=== PATIENT | male | born 1965 | race Caucasian/White ===

== ENCOUNTER 2023-10-02 06:11 | Observation (INO) | payer BC ==
[2023-10-02] MEDS ORDERED: Lactated Ringers 1,000 ML IV ONE (06:12)
[2023-10-02] MEDS ORDERED: Pepcid 20 MG VIAL IV ONE (06:12)
[2023-10-02] MEDS ORDERED: Reglan 10 MG/2 ML IV ONE (06:12)
[2023-10-02] MEDS ORDERED: Versed 2 MG/2 ML Injection IV ONE (06:12)
[2023-10-02] MEDS ORDERED: DIPRIVAN 200 MG/20 ML IV ONE (06:12)
[2023-10-02] MEDS ORDERED: Xylocaine-Mpf 2% 5 Ml Vial IJ ONE (06:12)
[2023-10-02] MEDS ORDERED: DEXMEDETOMIDINE 80 MCG/20ML-NS IV ONE (06:12)
[2023-10-02] MEDS ORDERED: Xylocaine 1% Vial 30 ML PF IJ ONE (06:12)
[2023-10-02] MEDS ORDERED: Marcaine Mpf 0.5% Vial 30 Ml IJ ONE (06:12)
[2023-10-02] MEDS: Pepcid 20 MG VIAL IV ONE (06:37)
[2023-10-02] MEDS: Lactated Ringers 1,000 ML IV SCH (06:37)
[2023-10-02] MEDS: Reglan 10 MG/2 ML IV ONE (06:37)
[2023-10-02] MEDS: Maxipime 2 GM IV SCH (07:41)
--- NOTE | 2023-10-02 09:21 | XRAY ---
Indication: Right foot incision and drainage. 1st metatarsal sesamoidectomy and bone biopsy. Intraoperative fluoroscopy provided for 6 seconds. 2 digital spot images submitted for interpretation demonstrates instrumentation 1st MTP. Correlate with intraoperative findings/report.
[2023-10-02] MEDS ORDERED: Maxipime 2 GM** 2 G in Sodium Chloride 100ML MINI-BAG PLUS 100 ML IV SCH (09:30)
[2023-10-02] MEDS ORDERED: Zofran 4 MG/2 ML VIAL IV PRN (10:27)
[2023-10-02] MEDS ORDERED: MORPHINE SULFATE 2 MG INJ IV PRN (10:28)
[2023-10-02] MEDS ORDERED: TYLENOL 325 MG PO PRN (10:29)
[2023-10-02] MEDS ORDERED: Docusate Sodium 100 MG PO PRN (10:29)
--- NOTE | 2023-10-02 10:43 | PCM.HP ---
History of Present Illness - Chief Complaint Chief Complaint: right foot wound Date: 10/02/23 History of Present Illness: Mr.THOMPSON GUAMAN is a 58 year old male with pmhx of HTN, Pacemaker, hyperlipidemia, gout, type II DM, and obesity. He was admitted post op surgery with podiatry today for I&D with bone graft of right foot. His right foot is wrapped and elevated on a pillow. He reports no pain at this time. Pt admitted by hospitalist team for medical management. Awaiting podiatry recs. Pt denies any further concerns at this time. - Review of Systems Constitutional: No Fever, No Chills Eyes: No Symptoms Ears, Nose, & Throat: No Symptoms Respiratory: No Cough, No Short Of Breath Cardiac: No Chest Pain, No Edema, No Syncope Abdominal/Gastrointestinal: No Abdominal Pain, No Nausea, No Vomiting, No Diarrhea Genitourinary Symptoms: No Dysuria Musculoskeletal: No Back Pain, No Neck Pain Skin: Decubiti (right foot wound, wrapped by podiatry), No Rash Neurological: No Dizziness, No Focal Weakness, No Sensory Changes Psychological: No Symptoms Endocrine: No Symptoms Hematologic/Lymphatic: No Symptoms Immunological/Allergic: No Symptoms Medications & Allergies Home Medications: Home Medication List Allopurinol 300 mg [Zyloprim 300 mg] 300 mg PO DAILY 12/16/14 [History Confirmed 10/02/23] Aspirin EC 325 mg [Ecotrin 325 MG] 81 mg PO DAILY 12/16/14 [History Confirmed 10/02/23] Carvedilol [Coreg 6.25 MG] 6.25 mg PO BID 12/16/14 [History Confirmed 10/02/23] Furosemide [Lasix] 40 mg PO DAILY 12/16/14 [History Confirmed 10/02/23] Potassium Chloride 20 Meq [Klor-Con 20 MEQ] 20 meq PO DAILY 12/16/14 [History Confirmed 10/02/23] Simvastatin 20 mg PO HS 12/16/14 [History Confirmed 10/02/23] lisinopriL [Lisinopril] 20 mg PO DAILY 12/16/14 [History Confirmed 10/02/23] Metformin HCl 500 mg [Glucophage 500 MG] 500 mg PO BIDWM 09/26/23 [History Confirmed 10/02/23] Cefepime HCl 2 gm [Maxipime 2 GM] 2 gm IJ BID 10/02/23 [History Confirmed 10/02/23] Allergies/Adverse Reactions: Allergies Allergy/AdvReac Type Severity Reaction Status Date / Time No Known Drug Allergies Allergy Verified 10/02/23 06:21 - Past Medical History Past Medical History: Yes Neurological History: Peripheral Neuropathy ENT History: No Pertinent History Cardiac History: Hypertension Respiratory History: No Pertinent History Endocrine Medical History: No Pertinent History Musculoskelatal History: No Pertinent History GI Medical History: No Pertinent History History: Other Pyscho-Social History: No Pertinent History Male Reproductive Disorders: No Pertinent History Comment: Pt had heart infection D/T pacemaker 2014. - Past Surgical History Past Surgical History: Yes Neuro Surgical History: No Pertinent History Cardiac History: Internal Defibrillator, Pacemaker GI Surgical History: No Pertinent History Genitourinary Surgical Hx: No Pertinent History Musculskeletal Surgical Hx: Joint Replacement Male Surgical History: No Pertinent History - Social History Smoking Status: Never smoker Exposure to second hand smoke: No Alcohol: None Drug Use: none - Physical Exam Vital Signs: Vital Signs - 24 hr Temp Pulse Resp BP Pulse Ox 10/02/23 06:44 97.4 F 69 18 122/65 96 10/02/23 06:27 97.4 F 69 18 122/65 96 General Appearance: no apparent distress, alert Neurologic Exam: alert, oriented x 3, cooperative, normal mood/affect, nml cerebellar function, nml station & gait, sensation nml, No motor deficits Eye Exam: PERRL/EOMI, eyes nml inspection Ears, Nose, Throat Exam: normal ENT inspection, TMs normal, pharynx normal, moist mucous membranes Neck Exam: normal inspection, non-tender, supple, full range of motion Respiratory Exam: normal breath sounds, lungs clear, No respiratory distress Cardiovascular Exam: regular rate/rhythm, normal heart sounds, normal peripheral pulses Gastrointestinal/Abdomen Exam: soft, normal bowel sounds, No tenderness, No mass Back Exam: normal inspection, normal range of motion, No CVA tenderness, No vertebral tenderness Extremity Exam: normal inspection, normal range of motion, pelvis stable, other (right foot wound, wrapped by podiatry- post op I&D) Skin Exam: normal color, warm, dry, No rash Lymphatic Exam: No adenopathy Results - Labs Lab/Micro Results: Lab Results-Last 24 Hours 10/02/23 Range/Units 09:25 POC Glucometer 147 H (74 to 106) mg/dL Microbiology 10/02/23 08:41 Aerobic Culture Result 1 - Final Foot - Right Not Reportable Aerobic Culture Result 2 - Final Not Reportable Aerobic Culture Result 3 - Final Not Reportable Aerobic Culture Result 4 - Final Not Reportable Aerobic Bacterial Sensitivity - Final Not Reportable Acid Fast Bacilli (AFB) Probe - Final Not Reportable M.tuberculosis Complex DNA Probe - Final Not Reportable Mycobact. avium Complex DNA Probe - Final Not Reportable Mycobacterium kansasii DNA Probe - Final Not Reportable Mycobacterium gordanae DNA Probe - Final Not Reportable Mycobacterium DNA Probe - Final Not Reportable Organism ID (Sequencing) - Final Not Reportable Organism ID (Sequencing 2)(SANTI) - Final Not Reportable AFB Susceptibility Testing - Final Not Reportable - Radiology Impressions Radiology Exams & Impressions: Radiology Procedures Category Date Time Status FLUOROSCOPY UP TO 1 HR Routine Exams 10/02/23 05:13 Taken FOOT (MINIMUM 3 VIEWS) Routine Exams 10/02/23 05:13 Completed Assessment/Plan (1) Wound, open, foot Current Visit: No Status: Acute Assessment & Plan: - Podiatry consult, awaiting recs - Post op I& D right foot wound with bone graft - cefepime IV - 2:2 type II DM - Narcotic pain control - zofran PRN N/V Code(s): S91.309A - UNSPECIFIED OPEN WOUND, UNSPECIFIED FOOT, INITIAL ENCOUNTER (2) Type II diabetes mellitus Current Visit: Yes Status: Chronic Assessment & Plan: - Uncontrolled - A1C 09/12/23 7.78 - accuchecks ac/hs - low dose s/s Humalog - 1800 morelia consistent carb diet - hold metformin (3) Hyperlipidemia Current Visit: Yes Status: Chronic Assessment & Plan: - continue statin Code(s): E78.5 - HYPERLIPIDEMIA, UNSPECIFIED (4) HTN (hypertension) Current Visit: Yes Status: Chronic Assessment & Plan: - stable - continue home meds Code(s): I10 - ESSENTIAL (PRIMARY) HYPERTENSION (5) Obesity, morbid, BMI 40.0-49.9 Current Visit: Yes Status: Acute Assessment & Plan: - advised ADA diet and exercise control VTE: SCD Next of kin: Peter Wilkins [phone] D/c plan: per podiatry recs Code status: Full Code(s): E66.01 - MORBID (SEVERE) OBESITY DUE TO EXCESS CALORIES
[2023-10-02] MEDS ORDERED: HUMALOG SQ PRN (10:49)
[2023-10-02] MEDS ORDERED: NORCO 7.5/325 MG TAB PO PRN (10:51)
--- NOTE | 2023-10-02 11:56 | XRAY ---
5.7 seconds of fluoroscopy was used in surgery for a right foot incision and drainage. 1st metatarsal sesamoidectomy and bone biopsy.
[2023-10-02] MEDS: ECOTRIN 81 MG PO SCH (12:45)
[2023-10-02] MEDS: Lasix 40 MG PO SCH (12:45)
[2023-10-02] MEDS: Klor Con PO SCH (12:46)
[2023-10-02] MEDS: ZYLOPRIM 300 MG PO SCH (12:46)
[2023-10-02] MEDS: Zestril 20 MG PO SCH (12:46)
[2023-10-02] MEDS: PIPERACILLIN/TAZOBACTAM 4.5 GM in Sodium Chloride 100ML MINI-BAG PLUS 100 ML IV SCH (18:20)
[2023-10-02] MEDS: ZOCOR 20MG PO SCH (21:28)
[2023-10-02] MEDS: Coreg PO SCH (21:28)
[2023-10-03] MEDS: NORCO 5/325 MG PO PRN (03:03)
[2023-10-03 04:52] LABS: Hematocrit 41.5 % (42-50); Hemoglobin 12.9 g/dL (12.5-18.0); Mean Cell Volume 89.8 fL (78-100); Mean Corpuscular Hemoglobin 27.9 pg (26-32); Mean Corpuscular Hgb Concent. 31.1 g/dL (32-36); Mean Platelet Volume 10.2 fL (7.5-11.0); Platelet Count 204 x10^3/uL (150-450); Red Blood Count 4.62 x10^6/uL (4.1-5.6); Red Cell Distribution Width 15.9 % (11.5-14.0); White Blood Count 9.2 x10^3/uL (4.0-10.5)
[2023-10-03 05:10] LABS: ANION GAP 10.1 MEQ/L (5-15); Calcium 8.4 mg/dL (8.4-10.2); Creatinine 1 0.88 mg/dL (0.66-1.25); EST GLOMERULAR FILTRATION RATE 98.4 ML/MIN; Potassium 4.4 mmol/L (3.5-5.1)
--- NOTE | 2023-10-03 08:48 | PCM.NOTE ---
Date and Time: 10/03/23 0839 Subjective Assessment: 10/02/23 Mr.THOMPSON GUAMAN is a 58 year old male with pmhx of HTN, Pacemaker, hyperlipidemia, gout, type II DM, and obesity. He was admitted post op surgery with podiatry today for I&D with bone graft of right foot. His right foot is wrapped and elevated on a pillow. He reports no pain at this time. Pt admitted by hospitalist team for medical management. Awaiting podiatry recs. Pt denies any further concerns at this time. 10/03/23 Pt resting in the chair. He reports no pain his morning. Podiatry discussed case with Dr. Keys yesterday. Pt has a hx of culture with pseudomonas twice. Started on IV Zosyn yesterday. He was seen in OR yesterday by podiatry and reported to have an abscess and osteomyelitis per podiatry. I have no radiology results to confirm this. He is otherwise doing well at this time. Plan is IP stay for 2-3 days per podiatry. He denies any further concerns at this time. - Review of Systems Constitutional: No Fever, No Chills Eyes: No Symptoms Ears, Nose, & Throat: No Symptoms Respiratory: No Cough, No Short Of Breath Cardiac: No Chest Pain, No Edema, No Syncope Abdominal/Gastrointestinal: No Abdominal Pain, No Nausea, No Vomiting, No Diarrhea Genitourinary Symptoms: No Dysuria Musculoskeletal: No Back Pain, No Neck Pain Skin: Skin Lesions (right foot wound, wrapped by podiatry), No Rash Neurological: No Dizziness, No Focal Weakness, No Sensory Changes Psychological: No Symptoms Endocrine: No Symptoms Hematologic/Lymphatic: No Symptoms Immunological/Allergic: No Symptoms Objective Exam General Appearance: no apparent distress, alert Neurologic Exam: alert, oriented x 3, cooperative, normal mood/affect, nml cerebellar function, sensation nml, No motor deficits Skin Exam: normal color, warm, dry Wound Assessment: Skin/Wound Assessment Wound/Incision Assessment Start: 10/02/23 11:22 Text: Status: Active Freq: Q6H Protocol: Document 10/03/23 08:00 THEODORE (Rec: 10/03/23 08:10 THOEDORE [id number]) Wound/Incision Assessment Right Foot Wound Assessment Shift Assessment Wound Type Incision Wound Stage Non Pressure Wound Dressing Status Dry & Intact Comment DR MERCADO DRESSING INTACT Eye Exam: PERRL, EOMI, eyes nml inspection Ears, Nose, Throat Exam: normal ENT inspection, pharynx normal, moist mucous membranes Neck Exam: normal inspection, non-tender, supple, full range of motion Respiratory Exam: normal breath sounds, lungs clear, No respiratory distress Cardiovascular Exam: regular rate/rhythm, normal heart sounds Gastrointestinal/Abdomen Exam: soft, No tenderness, No mass Extremity Exam: normal inspection, normal range of motion, other (right foot wound, wrapped by podiatry- post op I&D) Back Exam: normal inspection, normal range of motion, No CVA tenderness, No vertebral tenderness Male Genitalia Exam: deferred Rectal Exam: deferred Objective Data Vital Signs: Vital Signs - 24 hr Temp Pulse Resp BP Pulse Ox 10/03/23 07:56 65 97/52 10/03/23 07:20 97.5 F 68 18 89/50 99 10/03/23 04:00 97.0 F 68 18 102/52 96 10/02/23 23:38 97.7 F 78 16 106/58 99 10/02/23 19:34 97.6 F 74 20 112/53 97 10/02/23 13:05 97.4 F 66 17 136/81 96 10/02/23 12:05 97.4 F 63 16 108/55 96 10/02/23 12:00 97.5 F 66 17 136/81 96 10/02/23 11:35 97.4 F 63 17 110/60 96 10/02/23 11:05 97.3 F 62 17 113/60 96 10/02/23 10:50 97.1 F 62 17 113/60 98 Pain Assessment - Last Documented Pain Intensity 0 Pain Scale Used 0-10 Pain Scale Intake and Output: Intake & Output 09/30/23 10/01/23 10/02/23 10/03/23 11:59 11:59 11:59 11:59 Intake Total 1858 Output Total 1950 Balance -92 Weight 143.2 kg Lab Results: Lab Results-Last 24 Hours 10/02/23 10/02/23 10/02/23 Range/Units 09:25 12:28 16:42 WBC (4.0-10.5) x10^3/uL RBC (4.1-5.6) x10^6/uL Hgb (12.5-18.0) g/dL Hct (42-50) % MCV (78-100) fL MCH (26-32) pg MCHC (32-36) g/dL RDW (11.5-14.0) % Plt Count (150-450) x10^3/uL MPV (7.5-11.0) fL Sodium (135-145) mmol/L Potassium (3.5-5.1) mmol/L Chloride (98-107) mmol/L Carbon Dioxide (22-30) mmol/L Anion Gap (5-15) MEQ/L BUN (9-20) mg/dL Creatinine (0.66-1.25) mg/dL Estimated GFR ML/MIN Glucose (74-106) mg/dL POC Glucometer 147 H 199 H 174 H (74 to 106) mg/dL Calcium (8.4-10.2) mg/dL 10/02/23 10/03/23 10/03/23 Range/Units 21:23 04:42 04:42 WBC 9.2 (4.0-10.5) x10^3/uL RBC 4.62 (4.1-5.6) x10^6/uL Hgb 12.9 (12.5-18.0) g/dL Hct 41.5 L (42-50) % MCV 89.8 (78-100) fL MCH 27.9 (26-32) pg MCHC 31.1 L (32-36) g/dL RDW 15.9 H (11.5-14.0) % Plt Count 204 (150-450) x10^3/uL MPV 10.2 (7.5-11.0) fL Sodium 137 (135-145) mmol/L Potassium 4.4 (3.5-5.1) mmol/L Chloride 103 (98-107) mmol/L Carbon Dioxide 28 (22-30) mmol/L Anion Gap 10.1 (5-15) MEQ/L BUN 22 H (9-20) mg/dL Creatinine 0.88 (0.66-1.25) mg/dL Estimated GFR 98.4 ML/MIN Glucose 130 H (74-106) mg/dL POC Glucometer 171 H (74 to 106) mg/dL Calcium 8.4 (8.4-10.2) mg/dL 03/13/24 Range/Units 07:17 WBC (4.0-10.5) x10^3/uL RBC (4.1-5.6) x10^6/uL Hgb (12.5-18.0) g/dL Hct (42-50) % MCV (78-100) fL MCH (26-32) pg MCHC (32-36) g/dL RDW (11.5-14.0) % Plt Count (150-450) x10^3/uL MPV (7.5-11.0) fL Sodium (135-145) mmol/L Potassium (3.5-5.1) mmol/L Chloride (98-107) mmol/L Carbon Dioxide (22-30) mmol/L Anion Gap (5-15) MEQ/L BUN (9-20) mg/dL Creatinine (0.66-1.25) mg/dL Estimated GFR ML/MIN Glucose (74-106) mg/dL POC Glucometer 125 H (74 to 106) mg/dL Calcium (8.4-10.2) mg/dL Radiology Exams: Radiology Procedures Category Date Time Status FLUOROSCOPY UP TO 1 HR Routine Exams 10/02/23 05:13 Completed FOOT (MINIMUM 3 VIEWS) Routine Exams 10/02/23 05:13 Completed Assessment/Plan (1) Wound, open, foot Current Visit: No Status: Acute Code(s): S91.309A - UNSPECIFIED OPEN WOUND, UNSPECIFIED FOOT, INITIAL ENCOUNTER (2) Type II diabetes mellitus Current Visit: Yes Status: Chronic (3) Hyperlipidemia Current Visit: Yes Status: Chronic Code(s): E78.5 - HYPERLIPIDEMIA, UNSPECIFIED (4) HTN (hypertension) Current Visit: Yes Status: Chronic Code(s): I10 - ESSENTIAL (PRIMARY) HYPERTENSION (5) Obesity, morbid, BMI 40.0-49.9 Current Visit: Yes Status: Acute Assessment & Plan: (1) Wound, open, foot Current Visit: No Status: Acute Assessment & Plan: - Podiatry consult, awaiting recs - Post op I& D right foot wound with bone graft - was on Cefepime OP - IV Zosyn - 2:2 type II DM - Narcotic pain control - Zofran PRN N/V Code(s): S91.309A - UNSPECIFIED OPEN WOUND, UNSPECIFIED FOOT, INITIAL ENCOUNTER (2) Type II diabetes mellitus Current Visit: Yes Status: Chronic Assessment & Plan: - Uncontrolled - A1C 09/12/23 7.78 - accuchecks ac/hs - low dose s/s Humalog - 1800 morelia consistent carb diet - hold metformin (3) Hyperlipidemia Current Visit: Yes Status: Chronic Assessment & Plan: - continue statin Code(s): E78.5 - HYPERLIPIDEMIA, UNSPECIFIED (4) HTN (hypertension) Current Visit: Yes Status: Chronic Assessment & Plan: - stable - continue home meds Code(s): I10 - ESSENTIAL (PRIMARY) HYPERTENSION (5) Obesity, morbid, BMI 40.0-49.9 Current Visit: Yes Status: Acute Assessment & Plan: - advised ADA diet and exercise control Code(s): E66.01 - MORBID (SEVERE) OBESITY DUE TO EXCESS CALORIES (6) History of MDR Pseudomonas aeruginosa infection Current Visit: Yes Status: Acute Assessment & Plan: - seen after reviewing old labs - No need for isolation unless doing dressing changes per infection control. VTE: SCD Next of kin: Peter Franky [phone] D/c plan: 2-3 days Code status: Full Code(s): Z86.19 - PERSONAL HISTORY OF OTHER INFECTIOUS AND PARASITIC DISEASES
--- NOTE | 2023-10-03 09:13 | OP ---
SURGERY DATE/TIME: 10/02/2023 0757 PREOPERATIVE DIAGNOSES: 1) Right foot pain. 2) Diabetic foot ulceration. 3) Diabetic peripheral neuropathy. 4) Osteomyelitis of fibular sesamoid. 5) Abscess right foot. POSTOPERATIVE DIAGNOSES: 1) Right foot pain. 2) Diabetic foot ulceration. 3) Diabetic peripheral neuropathy. 4) Osteomyelitis of fibular sesamoid. 5) Abscess right foot. PROCEDURE: Incision and drainage with bone debridement and bone biopsy to the right foot with open packing. SURGEON: Mariusz Yen DPM. WEB PRESS JOGGER: None. ANESTHESIA: Monitored anesthesia care with intraoperative block at the level of the ankle consisting of 30 cc of a 1:1 mixture of 1% lidocaine plain and 0.5% bupivacaine plain. HEMOSTASIS: Pressure dressing. ESTIMATED BLOOD LOSS: Approximately 20 cc. MATERIALS: 3-0 Nylon, 0.25 inch Iodoform packing, 1,000 ml of Bactisure. INJECTABLES: 30 cc of a 1:1 mixture of 1% lidocaine plain and 0.5% bupivacaine plain injected in an ankle block-type fashion to the right ankle. INDICATION FOR SURGERY: Carlos is a very pleasant 58-year-old male who is well-known to our service for a diabetic foot ulcer to the right foot that had started several months ago. As a matter of fact, the patient has had this wound open in the past which resolved with time approximately five years ago. At this time, the wound does have a positive probe to bone with concern for infection. The patient was sent for an MRI, which did demonstrate probability of osteomyelitis in a minimum fibular sesamoid. At this time, we have decided to proceed based on the fact that the MRI did demonstrate an abscess between the first and second metatarsus plantarly to proceed with incision and drainage as well as perform bone debridement with removal of the fibular sesamoid as well as bone biopsies to be taken of the first metatarsal and proximal phalanx of the hallux. The patient understands all risks, complications and benefits of surgical intervention at this time including but not limited to infection, hematoma, seroma, possibility of delayed wound healing, nonwound healing and possible failure of surgical intervention leading to amputation. The patient has been made aware that his infection is not currently limb threatening or life threatening. However, this can still progress despite our work. We will do everything to avoid this outcome. The patient understands all of this. Plenty of time was allowed for the patient to ask question which were answered to his apparent satisfaction. It is at this we have decided to proceed. DESCRIPTION OF PROCEDURE AND FINDINGS: The patient is brought into the OR and placed on the OR table in the supine position. At this time, monitored anesthesia care was administered until the patient was adequately sedated. The right foot was prepped and draped in typical sterile fashion and lowered onto the surgical field. At this time, attention was directed to the plantar aspect of the right foot where there was a positive probe to bone which tunneled into metatarsal space and dorsally this did demonstrate some purulence and this was expressed. Dorsal incision was made through the intermetatarsal area connecting the plantar and dorsal foot wound. At this time, attention was directed to the plantar aspect where the wound was excised and on inspection the fibular sesamoid was identified and removed from its footprint. Bone quality was assessed and bone biopsies were taken utilizing a rongeur at the first metatarsal head plantarly as well as the base of the proximal phalanx plantarly this was sent for pathologic assessment. Cultures were obtained in the abscess this was then flushed with 1,000 ml of Bactisure. Following this, 3 liters of sterile saline were utilized to flush the surgical site. 0.25 inch Iodoform packing dipped in Iodine was then packed into the site. Following this, the wounds at the medial aspect of the first metaphalangeal joint as well as the lateral leg wounds from venous insufficiency were debrided. Following this the wounds were cleansed and a dressing consisting of 0.25 inch Iodoform packing, Iodine, Adaptic, 4x4, Kerlix, ABD, Ysabel and Coban was applied to the right lower extremity. The patient was then reversed from anesthesia and returned to the postoperative anesthesia care unit with vital signs stable and vascular status intact. The patient handled the anesthesia as well as the procedure without significant complication. Postoperative orders as indicated in the patient's inpatient chart.
[2023-10-03] MEDS ORDERED: Ecotrin 325 MG PO SCH (10:00)
[2023-10-03] MEDS: VITAMIN D PO SCH (10:00)
[2023-10-03] MEDS ORDERED: NON-FORMULARY ITEM (Potassium Chloride 20 Meq [Klor-Con 20 Meq] 20 MEQ Tab) PO SCH (10:00)
[2023-10-03] MEDS: Maxipime 2 GM** 2 G in Sodium Chloride 0.9% 100 ML IV SCH (17:32)
[2023-10-03] MEDS ORDERED: MAXIPIME 1 GM IV SCH (18:00)
[2023-10-04 04:46] LABS: Hematocrit 42.2 % (42-50); Hemoglobin 12.9 g/dL (12.5-18.0); Mean Cell Volume 90.2 fL (78-100); Mean Corpuscular Hemoglobin 27.6 pg (26-32); Mean Corpuscular Hgb Concent. 30.6 g/dL (32-36); Mean Platelet Volume 10.2 fL (7.5-11.0); Platelet Count 217 x10^3/uL (150-450); Red Blood Count 4.68 x10^6/uL (4.1-5.6); Red Cell Distribution Width 15.9 % (11.5-14.0); White Blood Count 7.6 x10^3/uL (4.0-10.5)
[2023-10-04 05:18] LABS: ANION GAP 10.9 MEQ/L (5-15); Calcium 8.5 mg/dL (8.4-10.2); Creatinine 1 0.73 mg/dL (0.66-1.25); EST GLOMERULAR FILTRATION RATE 104.2 ML/MIN; Potassium 4.4 mmol/L (3.5-5.1)
--- NOTE | 2023-10-04 09:51 | PCM.DS ---
Discharge Summary Date of Admission: 10/02/23 06:11 Date of Discharge: 10/04/23 Admitting Physician: ANABELLE ABERNATHY MD Consults: Consults on Case 10/02/23 10:46 Consult Podiatry ROUTINE Primary Care Provider: BRII JUAN Allergies Allergies No Known Drug Allergies Allergy (Verified 10/02/23 06:21) Hospital Summary - Hospital Course Hospital Course: 10/02/23 Mr.THOMPSON GUAMAN is a 58 year old male with pmhx of HTN, Pacemaker, hyperlipidemia, gout, type II DM, and obesity. He was admitted post op surgery with podiatry today for I&D with bone graft of right foot. His right foot is wrapped and elevated on a pillow. He reports no pain at this time. Pt admitted by hospitalist team for medical management. Awaiting podiatry recs. Pt denies any further concerns at this time. 10/03/23 Pt resting in the chair. He reports no pain his morning. Podiatry discussed case with Dr. Keys yesterday. Pt has a hx of culture with pseudomonas twice. Started on IV Zosyn yesterday. He was seen in OR yesterday by podiatry and reported to have an abscess and osteomyelitis per podiatry. I have no radiology results to confirm this. He is otherwise doing well at this time. Plan is IP stay for 2-3 days per podiatry. He denies any further concerns at this time. 10/04/23 Pt resting in the chair. He is ready to go home as he explained he has not gotten much sleep d/t the bed being uncomfortable. He is also upset about the recliner not being able to keep the legs up. Discussed with community service organization director and household assistant his concerns. Pt is going to have OP antibiotics per podiatry. Case management helped to set this up for pt. Pt came in to hospital with PICC line in place. If ok with podiatry pt can d/c today. Pt did well with PT yesterday. He denies any further concerns at this time. - Vitals & Intake/Output Vital Signs: Vital Signs Temperature 96.9 F 10/04/23 07:43 Pulse Rate 71 10/04/23 07:43 Respiratory Rate 18 10/04/23 07:43 Blood Pressure 126/73 10/04/23 07:43 O2 Sat by Pulse Oximetry 99 10/04/23 07:43 Intake & Output: Intake & Output 10/01/23 10/02/23 10/03/23 10/04/23 11:59 11:59 11:59 11:59 Intake Total 2097 2079 Output Total 1950 1250 Balance 148 830 Weight 143.2 kg - Lab Result Diagrams: 10/04/23 04:40 10/04/23 04:40 Lab Results-Last 24 Hrs: Lab Results-Last 24 Hours 10/03/23 10/03/23 10/03/23 Range/Units 11:09 16:10 21:57 WBC (4.0-10.5) x10^3/uL RBC (4.1-5.6) x10^6/uL Hgb (12.5-18.0) g/dL Hct (42-50) % MCV (78-100) fL MCH (26-32) pg MCHC (32-36) g/dL RDW (11.5-14.0) % Plt Count (150-450) x10^3/uL MPV (7.5-11.0) fL Sodium (135-145) mmol/L Potassium (3.5-5.1) mmol/L Chloride (98-107) mmol/L Carbon Dioxide (22-30) mmol/L Anion Gap (5-15) MEQ/L BUN (9-20) mg/dL Creatinine (0.66-1.25) mg/dL Estimated GFR ML/MIN Glucose (74-106) mg/dL POC Glucometer 174 H 201 H 123 H (74 to 106) mg/dL Calcium (8.4-10.2) mg/dL 10/04/23 10/04/23 10/04/23 Range/Units 04:40 04:40 07:04 WBC 7.6 (4.0-10.5) x10^3/uL RBC 4.68 (4.1-5.6) x10^6/uL Hgb 12.9 (12.5-18.0) g/dL Hct 42.2 (42-50) % MCV 90.2 (78-100) fL MCH 27.6 (26-32) pg MCHC 30.6 L (32-36) g/dL RDW 15.9 H (11.5-14.0) % Plt Count 217 (150-450) x10^3/uL MPV 10.2 (7.5-11.0) fL Sodium 136 (135-145) mmol/L Potassium 4.4 (3.5-5.1) mmol/L Chloride 103 (98-107) mmol/L Carbon Dioxide 26 (22-30) mmol/L Anion Gap 10.9 (5-15) MEQ/L BUN 18 (9-20) mg/dL Creatinine 0.73 (0.66-1.25) mg/dL Estimated GFR 104.2 ML/MIN Glucose 135 H (74-106) mg/dL POC Glucometer 134 H (74 to 106) mg/dL Calcium 8.5 (8.4-10.2) mg/dL Micro Results-Entire Visit: Microbiology 10/02/23 08:41 Gram Stain - Final Foot - Right Gram Stain Result 1 - Final Gram Stain Result 2 - Final AFB Specimen Processing - Final Acid Fast Bacilli Smear - Final Accuchecks Date 10/04/23 Date 10/03/23 Date 10/03/23 Time 16:21 - Procedures and Test Procedures and Tests throughout Hospitalization: Therapy Orders & Screens 10/02/23 11:22 OT Screen per Nursing Assess ONCE Comment: Protocol Order Physician Instructions: Greater than 3 points order OT Admission Screening Reason For Exam: Triggered on Admission Diagnosis: right foot wound Open Wound/Cellutlitis/Pressure Ulcers: No Acute Fx/ORIF/Change in wt bearing status: No Severe MUSCULOSKELETAL pain: No ADL Dysfunction: Yes Acute CVA w/Hemiparesis/Hemiplegia: No Decreased Functional Mobility/Strength: Yes Sprain/Strain: No Acute Post-op Mobility Dysfunction: Yes Total Points: 7 PT Screen per Nursing Assess ONCE Comment: Protocol Order Physician Instructions: Greater than 3 points order PT Admission Screenin Reason For Exam: Triggered on Admission Diagnosis: right foot wound Open Wound/Cellutlitis/Pressure Ulcers: No Acute Fx/ORIF/Change in wt bearing status: No Severe MUSCULOSKELETAL pain: No ADL Dysfunction: Yes Acute CVA w/Hemiparesis/Hemiplegia: No Decreased Functional Mobility/Strength: Yes Sprain/Strain: No Acute Post-op Mobility Dysfunction: Yes Total Points: 7 10/02/23 14:36 PT Eval & Treat ( Order) ONCE Reason for Eval:: post foot surgery eval for home needs. Diagnosis: right foot wound Discharge Exam General Appearance: no apparent distress, alert, obese Neurologic Exam: alert, oriented x 3, cooperative, normal mood/affect, nml cerebellar function, sensation nml, No motor deficits Eye Exam: PERRL, EOMI, eyes nml inspection Ears, Nose, Throat Exam: normal ENT inspection, pharynx normal, moist mucous membranes Neck Exam: normal inspection, non-tender, supple, full range of motion Respiratory Exam: normal breath sounds, lungs clear, No respiratory distress Cardiovascular Exam: regular rate/rhythm, normal heart sounds Gastrointestinal/Abdomen Exam: soft, No tenderness, No mass Male Genitalia Exam: deferred Rectal Exam: deferred Back Exam: normal inspection, normal range of motion, No CVA tenderness, No vertebral tenderness Extremity Exam: normal inspection, normal range of motion Skin Exam: normal color, warm, dry, other (right foot wound, wrapped by podiatry) Wound Assessment: Skin/Wound Assessment Wound/Incision Assessment Start: 10/02/23 11:22 Text: Status: Active Freq: Q6H Protocol: Document 10/04/23 08:00 AR (Rec: 10/04/23 08:41 AR [id number]) Wound/Incision Assessment Right Foot Wound Assessment Shift Assessment Wound Type Incision Wound Stage Non Pressure Wound Dressing Status Dry & Intact Comment Dressing per Dr. Jess DEJESUS Wound Photo Photo Taken No Final Diagnosis/Problem List - Final Discharge Diagnosis/Problem (1) Wound, open, foot Current Visit: No Status: Acute Code(s): S91.309A - UNSPECIFIED OPEN WOUND, UNSPECIFIED FOOT, INITIAL ENCOUNTER (2) Type II diabetes mellitus Current Visit: Yes Status: Chronic (3) Hyperlipidemia Current Visit: Yes Status: Chronic Code(s): E78.5 - HYPERLIPIDEMIA, UNSPECIFIED (4) HTN (hypertension) Current Visit: Yes Status: Chronic Code(s): I10 - ESSENTIAL (PRIMARY) HYPERTENSION (5) Obesity, morbid, BMI 40.0-49.9 Current Visit: Yes Status: Acute Code(s): E66.01 - MORBID (SEVERE) OBESITY DUE TO EXCESS CALORIES (6) History of MDR Pseudomonas aeruginosa infection Current Visit: Yes Status: Acute Assessment & Plan: (1) Wound, open, foot Current Visit: No Status: Acute Assessment & Plan: - Podiatry consult, awaiting recs - Post op I& D right foot wound with bone graft - was on Cefepime OP - IV Zosyn - 2:2 type II DM - Narcotic pain control - Zofran PRN N/V 10/03 - Podiatry changed antibiotics back to cefepime and will continue OP. - Pt has PICC line in place - CM to set up Op antibiotics - PT eval - If ok with podiatry november d/c today Code(s): S91.309A - UNSPECIFIED OPEN WOUND, UNSPECIFIED FOOT, INITIAL ENCOUNTER (2) Type II diabetes mellitus Current Visit: Yes Status: Chronic Assessment & Plan: - Uncontrolled - A1C 09/12/23 7.78 - accuchecks ac/hs - low dose s/s Humalog - 1800 morelia consistent carb diet - hold metformin 10/03 - continue home meds Op (3) Hyperlipidemia Current Visit: Yes Status: Chronic Assessment & Plan: - continue statin Code(s): E78.5 - HYPERLIPIDEMIA, UNSPECIFIED (4) HTN (hypertension) Current Visit: Yes Status: Chronic Assessment & Plan: - stable - continue home meds Code(s): I10 - ESSENTIAL (PRIMARY) HYPERTENSION (5) Obesity, morbid, BMI 40.0-49.9 Current Visit: Yes Status: Acute Assessment & Plan: - advised ADA diet and exercise control Code(s): E66.01 - MORBID (SEVERE) OBESITY DUE TO EXCESS CALORIES (6) History of MDR Pseudomonas aeruginosa infection Current Visit: Yes Status: Acute Assessment & Plan: - seen after reviewing old labs - No need for isolation unless doing dressing changes per infection control. - current cultures pending- f/u with podiatry OP Code(s): Z86.19 - PERSONAL HISTORY OF OTHER INFECTIOUS AND PARASITIC DISEASES - Discharge Discharge Date: 10/04/23 Disposition: Home, Self-Care Condition: Stable Prescriptions: Continue Aspirin EC 325 mg [Ecotrin 325 MG] 81 mg PO DAILY Potassium Chloride 20 Meq [Klor-Con 20 MEQ] 20 meq PO DAILY Furosemide [Lasix] 40 mg PO DAILY Carvedilol [Coreg ] 6.25 mg PO BID lisinopriL [Lisinopril] 20 mg PO DAILY Simvastatin 20 mg PO HS Allopurinol 300 mg [Zyloprim 300 mg] 300 mg PO DAILY Metformin HCl 500 mg [Glucophage 500 MG] 500 mg PO BIDWM Cefepime HCl 2 gm [Maxipime 2 GM] 2 gm IJ BID Cholecalciferol (Vitamin D3) [Vitamin D] 2,000 unit PO DAILY Follow up with: JESS BOSTON DPM [ACTIVE STAFF] - 10/08/23 10:30 am BRII JUAN MD [Primary Care Provider] - 10/11/23 11:15 am
[2023-10-04] MEDS: GARAMYCIN IV ONE (16:27)
[2023-10-04] MEDS: SODIUM CHLORIDE 0.9% IV ONE (16:27)
[2023-10-05 07:03] LABS: Hematocrit 41.1 % (42-50); Hemoglobin 12.5 g/dL (12.5-18.0); Mean Cell Volume 91.9 fL (78-100); Mean Corpuscular Hgb Concent. 30.4 g/dL (32-36); Mean Platelet Volume 10.2 fL (7.5-11.0); Platelet Count 203 x10^3/uL (150-450); Red Blood Count 4.47 x10^6/uL (4.1-5.6); Red Cell Distribution Width 15.6 % (11.5-14.0); White Blood Count 6.8 x10^3/uL (4.0-10.5)
[2023-10-05 07:40] LABS: ALBUMIN 3.7 g/dL (3.5-5.0); ANION GAP 11.3 MEQ/L (5-15); BILIRUBIN,TOTAL 0.5 mg/dL (0.2-1.3); Calcium 8.4 mg/dL (8.4-10.2); Creatinine 1 0.73 mg/dL (0.66-1.25); EST GLOMERULAR FILTRATION RATE 104.2 ML/MIN; Potassium 4.2 mmol/L (3.5-5.1); Total Protein 7.2 g/dL (6.3-8.2)
--- NOTE | 2023-10-05 07:54 | PCM.CONS ---
Podiatry HPI - Consult Date of Consultation Date: 10/02/23 Reason for Consult: Oseomyelitis fibular sesamoid, chronic diabetic foot infeciton right foot, venous insufficency ulcerations RLE Consulting Provider: JESS BOSTON DPM - [facility] History of Present Illness: Carlos is a very pleasant 58 year old male with PMHx of HTN, Pacemaker, hyperlipidemia, gout, type II DM, and obesity. Admission following Incision and draiange with bone debridement and biopsies to the 1st Metatarsal and proximal phalanx. Patient has failed outpatient therapy with oral and IV abx and at this time underwent I&D revealing sizable abscess between the 1st and 2nd metatarsal bases. Cultures of soft tissue consistently demonstrating Pseudomonas.MRI was obtained at [facility] in [place] on September 20, 2023 demonstrating 1 a penetrating skin ulceration along both medial and plantar surfaces of the great toe at the level of the first metatarsal phalangeal joint. Expansile abscess measuring 40 x 45 x 7 mm in length 2 edema through the lateral sesamoid of the first metatarsophalangeal joint to reflect focal osteomyelitis 3 mild degenerative arthritic changes of the first metatarsal phalangeal joint as well with minimal subarticular edema of the metatarsal head and phalangeal base however additional significant osteomyelitis was felt to be unlikely. 4 moderate degenerative arthritic change through the entire midfoot As a result patient was placed on IV antibiotics however cultures in the next visit did demonstrate he was still growing Pseudomonas and decision was made to proceed with incision and drainage with bone debridement. He is postop day 1. Denies any constitutional symptoms of infection. He denies any other pedal complaints at this time Medications & Allergies Home Medications: Home Medication List Allopurinol 300 mg [Zyloprim 300 mg] 300 mg PO DAILY 12/16/14 [History Confirmed 10/02/23] Carvedilol [Coreg ] 6.25 mg PO BID 12/16/14 [History Confirmed 10/02/23] Furosemide [Lasix] 40 mg PO DAILY 12/16/14 [History Confirmed 10/02/23] Potassium Chloride 20 Meq [Klor-Con 20 MEQ] 20 meq PO DAILY 12/16/14 [History Confirmed 10/02/23] Simvastatin 20 mg PO HS 12/16/14 [History Confirmed 10/02/23] lisinopriL [Lisinopril] 20 mg PO DAILY 12/16/14 [History Confirmed 10/02/23] Metformin HCl 500 mg [Glucophage 500 MG] 500 mg PO BIDWM 09/26/23 [History Confirmed 10/02/23] Cefepime HCl 2 gm [Maxipime 2 GM] 2 gm IJ BID 10/02/23 [History Confirmed 10/02/23] Cholecalciferol (Vitamin D3) [Vitamin D] 2,000 unit PO DAILY 10/03/23 [History Confirmed 10/03/23] Aspirin EC 325 mg [Ecotrin 325 MG] 325 mg PO DAILY #30 tab 10/04/23 [Rx] Hydrocodone/Acetaminophen [Hydrocodone-Acetamin 7.5-325] 1 each PO Q6HPRN PRN #28 tablet MDD 4 10/04/23 [Rx] Allergies/Adverse Reactions: Allergies Allergy/AdvReac Type Severity Reaction Status Date / Time No Known Drug Allergies Allergy Verified 10/02/23 06:21 - Past Medical History Past Medical History: Yes Neurological History: Peripheral Neuropathy ENT History: No Pertinent History Cardiac History: Hypertension Respiratory History: No Pertinent History Endocrine Medical History: No Pertinent History Musculoskelatal History: No Pertinent History GI Medical History: No Pertinent History History: Other Pyscho-Social History: No Pertinent History Male Reproductive Disorders: No Pertinent History Comment: Pt had heart infection D/T pacemaker 2014. - Past Surgical History Past Surgical History: Yes Neuro Surgical History: No Pertinent History Cardiac History: Internal Defibrillator, Pacemaker GI Surgical History: No Pertinent History Genitourinary Surgical Hx: No Pertinent History Musculskeletal Surgical Hx: Joint Replacement Male Surgical History: No Pertinent History - Social History Smoking Status: Never smoker Exposure to second hand smoke: No Alcohol: None Drug Use: none - Social Determinants of Health Will the patient participate in the screening: Yes Do you worry about a steady place to live?: No Do you have any problems with any of the following?: No known problems In the past 12 months,have you had to go without utilities?: No Have you or anyone in your house had to go without enough: No Transportation Issues: No Has anyone in your support network made you feel unsafe?: No Does the patient want assistance with any of the above?: No Physical Exam - Narrative Narrative Physical Exam: Packing pulled to the dorsal aspect of the foot revealing minimal purulence packing pulled to the plantar aspect of the foot demonstrating no residual infection. Wound margins with mild maceration however no obvious necrosis of skin edges. No evidence of continued infection at plantar aspect of foot Results - Labs Lab/Micro Results: Lab Results-Last 24 Hours 10/04/23 10/04/23 10/04/23 Range/Units 11:29 16:08 21:49 WBC (4.0-10.5) x10^3/uL RBC (4.1-5.6) x10^6/uL Hgb (12.5-18.0) g/dL Hct (42-50) % MCV (78-100) fL MCH (26-32) pg MCHC (32-36) g/dL RDW (11.5-14.0) % Plt Count (150-450) x10^3/uL MPV (7.5-11.0) fL Sodium (135-145) mmol/L Potassium (3.5-5.1) mmol/L Chloride (98-107) mmol/L Carbon Dioxide (22-30) mmol/L Anion Gap (5-15) MEQ/L BUN (9-20) mg/dL Creatinine (0.66-1.25) mg/dL Estimated GFR ML/MIN Glucose (74-106) mg/dL POC Glucometer 180 H 152 H 168 H (74 to 106) mg/dL Calcium (8.4-10.2) mg/dL Total Bilirubin (0.2-1.3) mg/dL AST (17-59) U/L ALT (0-50) U/L Alkaline Phosphatase (38-126) U/L Serum Total Protein (6.3-8.2) g/dL Albumin (3.5-5.0) g/dL Random Gentamicin ug/mL 10/05/23 10/05/23 10/05/23 Range/Units 00:30 06:50 06:50 WBC 6.8 (4.0-10.5) x10^3/uL RBC 4.47 (4.1-5.6) x10^6/uL Hgb 12.5 (12.5-18.0) g/dL Hct 41.1 L (42-50) % MCV 91.9 (78-100) fL MCH 28.0 (26-32) pg MCHC 30.4 L (32-36) g/dL RDW 15.6 H (11.5-14.0) % Plt Count 203 (150-450) x10^3/uL MPV 10.2 (7.5-11.0) fL Sodium 138 (135-145) mmol/L Potassium 4.2 (3.5-5.1) mmol/L Chloride 105 (98-107) mmol/L Carbon Dioxide 25 (22-30) mmol/L Anion Gap 11.3 (5-15) MEQ/L BUN 23 H (9-20) mg/dL Creatinine 0.73 (0.66-1.25) mg/dL Estimated GFR 104.2 ML/MIN Glucose 134 H (74-106) mg/dL POC Glucometer (74 to 106) mg/dL Calcium 8.4 (8.4-10.2) mg/dL Total Bilirubin 0.50 (0.2-1.3) mg/dL AST 37 (17-59) U/L ALT 30 (0-50) U/L Alkaline Phosphatase 71 (38-126) U/L Serum Total Protein 7.2 (6.3-8.2) g/dL Albumin 3.7 (3.5-5.0) g/dL Random Gentamicin 5.64 ug/mL Microbiology 10/02/23 08:41 Gram Stain - Final Foot - Right Gram Stain Result 1 - Final Gram Stain Result 2 - Final AFB Specimen Processing - Final Acid Fast Bacilli Smear - Final Accuchecks Date 10/04/23 Assessment/Plan (1) Diabetic foot ulcer associated with type 2 diabetes mellitus, with fat layer exposed Current Visit: Yes Status: Acute Assessment & Plan: Patient examination evaluation. Patient progressing without significant complication with some resolution of local and clinical symptomatology MRI performed 09/20/2023 at [facility] diabetic foot ulcer 1 a penetrating skin ulceration along both medial and plantar surfaces of the great toe at the level of the first metatarsal phalangeal joint. Expansile abscess measuring 40 x 45 x 7 mm in length 2 edema through the lateral sesamoid of the first metatarsophalangeal joint to reflect focal osteomyelitis 3 mild degenerative arthritic changes of the first metatarsal phalangeal joint as well with minimal subarticular edema of the metatarsal head and phalangeal base however additional significant osteomyelitis was felt to be unlikely. 4 moderate degenerative arthritic change through the entire midfoot As a result patient was placed on IV antibiotics however cultures in the next visit did demonstrate he was still growing Pseudomonas and decision was made to proceed with incision and drainage with bone debridement. At this time both incisions to the dorsal and plantar aspect of the wound were repacked with quarter inch iodoform sterile gauze. PICC line placed prior to admission Antibiotics changed due to previous failure on cefepime as well as convenience moving from twice daily to daily gentamicin pharmacy to dose Plan for discharge Sunday Dressing changes will be performed by outpatient during infusions packing will continue until Sunday Patient to be seen Sunday and if orders are to change we will proceed then Pain control as prescribed DVT prophylaxis as prescribed Nonweightbearing to the right lower extremityheel may be used for stability purposes if necessary Return for follow-up next week Code(s): E11.621 - TYPE 2 DIABETES MELLITUS WITH FOOT ULCER; L97.502 - NON-PRS CHRONIC ULCER OTH PRT UNSP FOOT W FAT LAYER EXPOSED (2) History of MDR Pseudomonas aeruginosa infection Current Visit: Yes Status: Acute Code(s): Z86.19 - PERSONAL HISTORY OF OTHER INFECTIOUS AND PARASITIC DISEASES (3) Obesity, morbid, BMI 40.0-49.9 Current Visit: Yes Status: Acute Code(s): E66.01 - MORBID (SEVERE) OBESITY DUE TO EXCESS CALORIES (4) Osteomyelitis Current Visit: Yes Status: Acute Code(s): M86.9 - OSTEOMYELITIS, UNSPECIFIED (5) HTN (hypertension) Current Visit: Yes Status: Chronic Code(s): I10 - ESSENTIAL (PRIMARY) HYPERTENSION (6) Hyperlipidemia Current Visit: Yes Status: Chronic Code(s): E78.5 - HYPERLIPIDEMIA, UNSPECIFIED (7) Type II diabetes mellitus Current Visit: Yes Status: Chronic (8) Renal insufficiency Current Visit: No Status: Acute (9) Wound, open, foot Current Visit: No Status: Acute Code(s): S91.309A - UNSPECIFIED OPEN WOUND, UNSPECIFIED FOOT, INITIAL ENCOUNTER
--- NOTE | 2023-10-05 08:07 | PCM.NOTE ---
Date and Time: 10/05/23 08 Subjective Assessment: POD #2 Doing well without complaints. Physical Exam - Narrative Narrative Physical Exam: Podiatry Physical Exam Objective Data Vital Signs: Vital Signs - 24 hr Temp Pulse Resp BP Pulse Ox 10/05/23 04:00 97.7 F 56 L 17 85/52 97 10/05/23 00:00 97.1 F 64 18 98/56 99 10/04/23 19:53 97.8 F 74 18 110/56 98 10/04/23 16:00 97.5 F 81 18 110/64 94 L 10/04/23 11:56 97.3 F 75 16 117/56 96 Pain Assessment - Last Documented Pain Intensity 3 Pain Scale Used 0-10 Pain Scale Intake and Output: Intake & Output 10/02/23 10/03/23 10/04/23 10/05/23 11:59 11:59 11:59 11:59 Intake Total 2097 2080 2080 Output Total 1950 1250 3325 Balance 148 830 -1245 Weight 143.2 kg Lab Results: Lab Results-Last 24 Hours 10/04/23 10/04/23 10/04/23 Range/Units 11:29 16:08 21:49 WBC (4.0-10.5) x10^3/uL RBC (4.1-5.6) x10^6/uL Hgb (12.5-18.0) g/dL Hct (42-50) % MCV (78-100) fL MCH (26-32) pg MCHC (32-36) g/dL RDW (11.5-14.0) % Plt Count (150-450) x10^3/uL MPV (7.5-11.0) fL Sodium (135-145) mmol/L Potassium (3.5-5.1) mmol/L Chloride (98-107) mmol/L Carbon Dioxide (22-30) mmol/L Anion Gap (5-15) MEQ/L BUN (9-20) mg/dL Creatinine (0.66-1.25) mg/dL Estimated GFR ML/MIN Glucose (74-106) mg/dL POC Glucometer 180 H 152 H 168 H (74 to 106) mg/dL Calcium (8.4-10.2) mg/dL Total Bilirubin (0.2-1.3) mg/dL AST (17-59) U/L ALT (0-50) U/L Alkaline Phosphatase (38-126) U/L Serum Total Protein (6.3-8.2) g/dL Albumin (3.5-5.0) g/dL Random Gentamicin ug/mL 10/05/23 10/05/23 10/05/23 Range/Units 00:30 06:50 06:50 WBC 6.8 (4.0-10.5) x10^3/uL RBC 4.47 (4.1-5.6) x10^6/uL Hgb 12.5 (12.5-18.0) g/dL Hct 41.1 L (42-50) % MCV 91.9 (78-100) fL MCH 28.0 (26-32) pg MCHC 30.4 L (32-36) g/dL RDW 15.6 H (11.5-14.0) % Plt Count 203 (150-450) x10^3/uL MPV 10.2 (7.5-11.0) fL Sodium 138 (135-145) mmol/L Potassium 4.2 (3.5-5.1) mmol/L Chloride 105 (98-107) mmol/L Carbon Dioxide 25 (22-30) mmol/L Anion Gap 11.3 (5-15) MEQ/L BUN 23 H (9-20) mg/dL Creatinine 0.73 (0.66-1.25) mg/dL Estimated GFR 104.2 ML/MIN Glucose 134 H (74-106) mg/dL POC Glucometer (74 to 106) mg/dL Calcium 8.4 (8.4-10.2) mg/dL Total Bilirubin 0.50 (0.2-1.3) mg/dL AST 37 (17-59) U/L ALT 30 (0-50) U/L Alkaline Phosphatase 71 (38-126) U/L Serum Total Protein 7.2 (6.3-8.2) g/dL Albumin 3.7 (3.5-5.0) g/dL Random Gentamicin 5.64 ug/mL Multi-Disciplinary Progress Notes: Multi-Disciplinary Progress Notes 10/04/23 17:19 Physical Therapy Note by Milo(Itz#[id number])Dora LATE ENTRY- PT. WAS SEEN ON 10/03/23 X 2. PT. WAS ABLE TO PERFORM SIT TO STAND - CGA/SBA NWB R LE. ABLE TO NAVIGATE ON KNEE SCOOTER W/ SBA AND MAINTAIN NWB R LE. PT. EDUCATED RE: SLOW PACE AND SLOW GRADUAL TURNS FOR SAFETY. PT. ALSO IS GETTING STANDARD WALKER TO USE AT HOME FOR TRANSFERS AND SHORT DISTANCES WHEN SCOOTER USE IS NOT POSSIBLE. PT. ABLE TO USE SW TO AMBULATE ~ 30' W/ CGA-SBA, BUT IS VERY FATIGUED D/T DECONDITIONING AND LARGE BODY HABITUS. ATEEMPTED STEP NEGOTIATION PT. HAS 4-5 STEPS W/ BILATERAL HRS THAT ARE 5' APART TO ENTER HOME. PT. WAS NOT ABLE TO MAINTAIN NWB STATUS FOR THIS SAFELY. PT. PERFORMED STEP NEGOTIATION OF 4 STEPS W/ BILATERAL HR AND PWB R HEEL W/ MIN ASSIST X 2. DR. MERCADO WAS MADE AWARE OF PT'S INABILITY TO MAINTAIN NWB STATUS ON STAIRS AND HE REPORTED HEEL WB IS ACCEPTABLE FOR STEPS ONLY FOR TRIPS FOR IV ATB. PT. IS TO D/C HOME 10/05/23 TO CONT. W/ OP IV ATB AND OP DRESSING CHANGES. PT. HAS CRUTCHES, STANDARD WALKER AND KNEE SCOOTER FOR D/C. Initialized on 10/04/23 17:19 - END OF NOTE 10/04/23 15:42 Case Management Note by Karla Mohan HAS NOW DECIDED FOR PATIENT TO DO GENTAMYCIN OUTPT RATHER THAN CEFIPIME. PATIENT WILL START GENTIMYCIN TODAY AND DC HOME TOMORROW. PATIENT TO HAVE DRESSING CHANGES DONE PER OTPT- PER JESS PEREZ FROM HIS OFFICE IS SENDING ORDERS IN TO OTPT Initialized on 10/04/23 15:42 - END OF NOTE 10/04/23 12:21 Case Management Note by Karla Mohan PATIENT CONTINUE TO PLAN TO DC HOME AT TIME OF DC. [facility]. DR. ROBB TO DISCUSS DRESSING CHANGES POSSIBLY BEING DONE HERE AT [facility]. PATIENT HAS CRUTCH AND WALKER IN ROOM THAT ARE HIS TO GO HOME WITH HIM. HE ALSO PLANS TO HAVE HIS RENT A KNEE SCOOTER FROM [employer] TODAY. WAITING FOR JESS TO ROUND TO FINISH DC PLAN AT THIS TIME Initialized on 10/04/23 12:21 - END OF NOTE Assessment/Plan (1) Diabetic foot ulcer associated with type 2 diabetes mellitus, with fat layer exposed Current Visit: Yes Status: Acute Assessment & Plan: Patient examination evaluation. Patient progressing without significant complication with some resolution of local signs of infection. No longer any purulence noted. At this time both incisions to the dorsal and plantar aspect of the wound were repacked with quarter inch iodoform sterile gauze. PICC line placed prior to admission with orders for daily gentamicin qd Plan for discharge Sunday Dressing changes will be performed by outpatient during infusions packing will continue until Sunday Patient to be seen Sunday in outpatient clinic and if orders are to change we will proceed then Pain control as prescribed DVT prophylaxis as prescribed Nonweightbearing to the right lower extremityheel may be used for stability pu rposes if necessary Return for follow-up next week Code(s): E11.621 - TYPE 2 DIABETES MELLITUS WITH FOOT ULCER; L97.502 - NON-PRS CHRONIC ULCER OTH PRT UNSP FOOT W FAT LAYER EXPOSED (2) History of MDR Pseudomonas aeruginosa infection Current Visit: Yes Status: Acute Code(s): Z86.19 - PERSONAL HISTORY OF OTHER INFECTIOUS AND PARASITIC DISEASES (3) Obesity, morbid, BMI 40.0-49.9 Current Visit: Yes Status: Acute Code(s): E66.01 - MORBID (SEVERE) OBESITY DUE TO EXCESS CALORIES (4) Osteomyelitis Current Visit: Yes Status: Acute Code(s): M86.9 - OSTEOMYELITIS, UNSPECIFIED (5) HTN (hypertension) Current Visit: Yes Status: Chronic Code(s): I10 - ESSENTIAL (PRIMARY) HYPERTENSION (6) Hyperlipidemia Current Visit: Yes Status: Chronic Code(s): E78.5 - HYPERLIPIDEMIA, UNSPECIFIED (7) Type II diabetes mellitus Current Visit: Yes Status: Chronic (8) Renal insufficiency Current Visit: No Status: Acute (9) Wound, open, foot Current Visit: No Status: Acute Code(s): S91.309A - UNSPECIFIED OPEN WOUND, UNSPECIFIED FOOT, INITIAL ENCOUNTER
--- NOTE | 2023-10-05 08:10 | PCM.NOTE ---
Date and Time: 10/05/23 0809 Subjective Assessment: POD #3 Awaiting d/c with no complaints. Physical Exam - Narrative Narrative Physical Exam: Podiatry Physical Exam Objective Data Vital Signs: Vital Signs - 24 hr Temp Pulse Resp BP Pulse Ox 10/05/23 04:00 97.7 F 56 L 17 85/52 97 10/05/23 00:00 97.1 F 64 18 98/56 99 10/04/23 19:53 97.8 F 74 18 110/56 98 10/04/23 16:00 97.5 F 81 18 110/64 94 L 10/04/23 11:56 97.3 F 75 16 117/56 96 Pain Assessment - Last Documented Pain Intensity 3 Pain Scale Used 0-10 Pain Scale Intake and Output: Intake & Output 10/02/23 10/03/23 10/04/23 10/05/23 11:59 11:59 11:59 11:59 Intake Total 2097 2080 2080 Output Total 5397 1250 3325 Balance 148 830 -1245 Weight 143.2 kg Lab Results: Lab Results-Last 24 Hours 10/04/23 10/04/23 10/04/23 Range/Units 11:29 16:08 21:49 WBC (4.0-10.5) x10^3/uL RBC (4.1-5.6) x10^6/uL Hgb (12.5-18.0) g/dL Hct (42-50) % MCV (78-100) fL MCH (26-32) pg MCHC (32-36) g/dL RDW (11.5-14.0) % Plt Count (150-450) x10^3/uL MPV (7.5-11.0) fL Sodium (135-145) mmol/L Potassium (3.5-5.1) mmol/L Chloride (98-107) mmol/L Carbon Dioxide (22-30) mmol/L Anion Gap (5-15) MEQ/L BUN (9-20) mg/dL Creatinine (0.66-1.25) mg/dL Estimated GFR ML/MIN Glucose (74-106) mg/dL POC Glucometer 180 H 152 H 168 H (74 to 106) mg/dL Calcium (8.4-10.2) mg/dL Total Bilirubin (0.2-1.3) mg/dL AST (17-59) U/L ALT (0-50) U/L Alkaline Phosphatase (38-126) U/L Serum Total Protein (6.3-8.2) g/dL Albumin (3.5-5.0) g/dL Random Gentamicin ug/mL 10/05/23 10/05/23 10/05/23 Range/Units 00:30 06:50 06:50 WBC 6.8 (4.0-10.5) x10^3/uL RBC 4.47 (4.1-5.6) x10^6/uL Hgb 12.5 (12.5-18.0) g/dL Hct 41.1 L (42-50) % MCV 91.9 (78-100) fL MCH 28.0 (26-32) pg MCHC 30.4 L (32-36) g/dL RDW 15.6 H (11.5-14.0) % Plt Count 203 (150-450) x10^3/uL MPV 10.2 (7.5-11.0) fL Sodium 138 (135-145) mmol/L Potassium 4.2 (3.5-5.1) mmol/L Chloride 105 (98-107) mmol/L Carbon Dioxide 25 (22-30) mmol/L Anion Gap 11.3 (5-15) MEQ/L BUN 23 H (9-20) mg/dL Creatinine 0.73 (0.66-1.25) mg/dL Estimated GFR 104.2 ML/MIN Glucose 134 H (74-106) mg/dL POC Glucometer (74 to 106) mg/dL Calcium 8.4 (8.4-10.2) mg/dL Total Bilirubin 0.50 (0.2-1.3) mg/dL AST 37 (17-59) U/L ALT 30 (0-50) U/L Alkaline Phosphatase 71 (38-126) U/L Serum Total Protein 7.2 (6.3-8.2) g/dL Albumin 3.7 (3.5-5.0) g/dL Random Gentamicin 5.64 ug/mL Multi-Disciplinary Progress Notes: Multi-Disciplinary Progress Notes 10/04/23 17:19 Physical Therapy Note by Milo(Itz#[id number])Dora LATE ENTRY- PT. WAS SEEN ON 10/03/23 X 2. PT. WAS ABLE TO PERFORM SIT TO STAND - CGA/SBA NWB R LE. ABLE TO NAVIGATE ON KNEE SCOOTER W/ SBA AND MAINTAIN NWB R LE. PT. EDUCATED RE: SLOW PACE AND SLOW GRADUAL TURNS FOR SAFETY. PT. ALSO IS GETTING STANDARD WALKER TO USE AT HOME FOR TRANSFERS AND SHORT DISTANCES WHEN SCOOTER USE IS NOT POSSIBLE. PT. ABLE TO USE SW TO AMBULATE ~ 30' W/ CGA-SBA, BUT IS VERY FATIGUED D/T DECONDITIONING AND LARGE BODY HABITUS. ATEEMPTED STEP NEGOTIATION PT. HAS 4-5 STEPS W/ BILATERAL HRS THAT ARE 5' APART TO ENTER HOME. PT. WAS NOT ABLE TO MAINTAIN NWB STATUS FOR THIS SAFELY. PT. PERFORMED STEP NEGOTIATION OF 4 STEPS W/ BILATERAL HR AND PWB R HEEL W/ MIN ASSIST X 2. DR. MERCADO WAS MADE AWARE OF PT'S INABILITY TO MAINTAIN NWB STATUS ON STAIRS AND HE REPORTED HEEL WB IS ACCEPTABLE FOR STEPS ONLY FOR TRIPS FOR IV ATB. PT. IS TO D/C HOME 10/05/23 TO CONT. W/ OP IV ATB AND OP DRESSING CHANGES. PT. HAS CRUTCHES, STANDARD WALKER AND KNEE SCOOTER FOR D/C. Initialized on 10/04/23 17:19 - END OF NOTE 10/04/23 15:42 Case Management Note by Karla Mohan HAS NOW DECIDED FOR PATIENT TO DO GENTAMYCIN OUTPT RATHER THAN CEFIPIME. PATIENT WILL START GENTIMYCIN TODAY AND DC HOME TOMORROW. PATIENT TO HAVE DRESSING CHANGES DONE PER OTPT- PER JESS PEREZ FROM HIS OFFICE IS SENDING ORDERS IN TO OTPT Initialized on 10/04/23 15:42 - END OF NOTE 10/04/23 12:21 Case Management Note by Karla Mohan PATIENT CONTINUE TO PLAN TO DC HOME AT TIME OF DC. HE WISHES TO COME TO [facility] FOR HIS INFUSIONS. DR. ROBB TO DISCUSS DRESSING CHANGES POSSIBLY BEING DONE HERE AT [facility]. PATIENT HAS CRUTCH AND WALKER IN ROOM THAT ARE HIS TO GO HOME WITH HIM. HE ALSO PLANS TO HAVE HIS RENT A KNEE SCOOTER FROM [employer] TODAY. WAITING FOR JESS TO ROUND TO FINISH DC PLAN AT THIS TIME Initialized on 10/04/23 12:21 - END OF NOTE Assessment/Plan (1) Diabetic foot ulcer associated with type 2 diabetes mellitus, with fat layer exposed Current Visit: Yes Status: Acute Assessment & Plan: Patient examination evaluation. Patient progressing without significant complication with some resolution of local signs of infection. No longer any purulence noted. At this time both incisions to the dorsal and plantar aspect of the wound were repacked with quarter inch iodoform sterile gauze. PICC line placed prior to admission with orders for daily gentamicin qd Plan for discharge today Dressing changes will be performed by outpatient during infusions packing will continue until Sunday Patient to be seen Sunday in outpatient clinic and if orders are to change we will proceed then Pain control as prescribed DVT prophylaxis as prescribed Nonweightbearing to the right lower extremityheel may be used for stability p urposes if necessary Return for follow-up next week Code(s): E11.621 - TYPE 2 DIABETES MELLITUS WITH FOOT ULCER; L97.502 - NON-PRS CHRONIC ULCER OTH PRT UNSP FOOT W FAT LAYER EXPOSED (2) History of MDR Pseudomonas aeruginosa infection Current Visit: Yes Status: Acute Code(s): Z86.19 - PERSONAL HISTORY OF OTHER INFECTIOUS AND PARASITIC DISEASES (3) Obesity, morbid, BMI 40.0-49.9 Current Visit: Yes Status: Acute Code(s): E66.01 - MORBID (SEVERE) OBESITY DUE TO EXCESS CALORIES (4) Osteomyelitis Current Visit: Yes Status: Acute Code(s): M86.9 - OSTEOMYELITIS, UNSPECIFIED (5) HTN (hypertension) Current Visit: Yes Status: Chronic Code(s): I10 - ESSENTIAL (PRIMARY) HYPERTENSION (6) Hyperlipidemia Current Visit: Yes Status: Chronic Code(s): E78.5 - HYPERLIPIDEMIA, UNSPECIFIED (7) Type II diabetes mellitus Current Visit: Yes Status: Chronic (8) Renal insufficiency Current Visit: No Status: Acute (9) Wound, open, foot Current Visit: No Status: Acute Code(s): S91.309A - UNSPECIFIED OPEN WOUND, UNSPECIFIED FOOT, INITIAL ENCOUNTER
[2023-10-05 08:11] VITALS: BP 107/55; PULSE 77; RESP 18; O2SAT 99
[2023-10-05] MEDS: TROUGH DRUG LEVELS IJ ONE (08:54)
[2023-10-05] MEDS: GARAMYCIN IV ONE (09:03)
[2023-10-05] MEDS: SODIUM CHLORIDE 0.9% IV ONE (09:03)
[2023-10-05] MEDS: PHARMACY DOSING REQUIRED: GENTAMICIN MC ONE (11:05)
--- NOTE | 2023-10-05 11:13 | PCM.DS ---
Discharge Summary Date of Admission: 10/02/23 06:11 Date of Discharge: 10/05/23 Admitting Physician: ANABELLE ABERNATHY MD Consults: Consults on Case 10/02/23 10:46 Consult Podiatry ROUTINE Primary Care Provider: BRII JUAN Allergies Allergies No Known Drug Allergies Allergy (Verified 10/02/23 06:21) Hospital Summary - Hospital Course Hospital Course: 10/02/23 Mr.THOMPSON GUAMAN is a 58 year old male with pmhx of HTN, Pacemaker, hyperlipidemia, gout, type II DM, and obesity. He was admitted post op surgery with podiatry today for I&D with bone graft of right foot. His right foot is wrapped and elevated on a pillow. He reports no pain at this time. Pt admitted by hospitalist team for medical management. Awaiting podiatry recs. Pt denies any further concerns at this time. 10/03/23 Pt resting in the chair. He reports no pain his morning. Podiatry discussed case with Dr. Keys yesterday. Pt has a hx of culture with pseudomonas twice. Started on IV Zosyn yesterday. He was seen in OR yesterday by podiatry and reported to have an abscess and osteomyelitis per podiatry. I have no radiology results to confirm this. He is otherwise doing well at this time. Plan is IP stay for 2-3 days per podiatry. He denies any further concerns at this time. 10/04/23 Pt resting in the chair. He is ready to go home as he explained he has not gotten much sleep d/t the bed being uncomfortable. He is also upset about the recliner not being able to keep the legs up. Discussed with supervisor public health nursing and school bus driver/teacher assistant his concerns. Pt is going to have OP antibiotics per podiatry. Case management helped to set this up for pt. Pt came in to hospital with PICC line in place. If ok with podiatry pt can d/c today. Pt did well with PT yesterday. He denies any further concerns at this time. 10/05/23 Pt resting on the side of the bed. He is again not happy today as he c/o the bed not being comfortable. He was planned to d/c yesterday but then there was a medication change. Pt changed to Gentamicin yesterday evening by podiatry. Plan per podiatry is to d/c home today with OP antibiotic meds as prescribed. Dressing change to be completed today by podiatry then november d/c. - Vitals & Intake/Output Vital Signs: Vital Signs Temperature 97.8 F 10/05/23 08:00 Pulse Rate 77 10/05/23 08:00 Respiratory Rate 18 10/05/23 08:00 Blood Pressure 107/55 10/05/23 08:00 O2 Sat by Pulse Oximetry 99 10/05/23 08:00 Intake & Output: Intake & Output 10/02/23 10/03/23 10/04/23 10/05/23 11:59 11:59 11:59 11:59 Intake Total 2093 2080 2200 Output Total 9701 1250 3325 Balance 148 830 -1125 Weight 143.2 kg - Lab Result Diagrams: 10/05/23 06:50 10/05/23 06:50 Lab Results-Last 24 Hrs: Lab Results-Last 24 Hours 10/04/23 10/04/23 10/04/23 Range/Units 11:29 16:08 21:49 WBC (4.0-10.5) x10^3/uL RBC (4.1-5.6) x10^6/uL Hgb (12.5-18.0) g/dL Hct (42-50) % MCV (78-100) fL MCH (26-32) pg MCHC (32-36) g/dL RDW (11.5-14.0) % Plt Count (150-450) x10^3/uL MPV (7.5-11.0) fL Sodium (135-145) mmol/L Potassium (3.5-5.1) mmol/L Chloride (98-107) mmol/L Carbon Dioxide (22-30) mmol/L Anion Gap (5-15) MEQ/L BUN (9-20) mg/dL Creatinine (0.66-1.25) mg/dL Estimated GFR ML/MIN Glucose (74-106) mg/dL POC Glucometer 180 H 152 H 168 H (74 to 106) mg/dL Calcium (8.4-10.2) mg/dL Total Bilirubin (0.2-1.3) mg/dL AST (17-59) U/L ALT (0-50) U/L Alkaline Phosphatase (38-126) U/L Serum Total Protein (6.3-8.2) g/dL Albumin (3.5-5.0) g/dL Random Gentamicin ug/mL 10/05/23 10/05/23 10/05/23 Range/Units 00:30 06:50 06:50 WBC 6.8 (4.0-10.5) x10^3/uL RBC 4.47 (4.1-5.6) x10^6/uL Hgb 12.5 (12.5-18.0) g/dL Hct 41.1 L (42-50) % MCV 91.9 (78-100) fL MCH 28.0 (26-32) pg MCHC 30.4 L (32-36) g/dL RDW 15.6 H (11.5-14.0) % Plt Count 203 (150-450) x10^3/uL MPV 10.2 (7.5-11.0) fL Sodium 138 (135-145) mmol/L Potassium 4.2 (3.5-5.1) mmol/L Chloride 105 (98-107) mmol/L Carbon Dioxide 25 (22-30) mmol/L Anion Gap 11.3 (5-15) MEQ/L BUN 23 H (9-20) mg/dL Creatinine 0.73 (0.66-1.25) mg/dL Estimated GFR 104.2 ML/MIN Glucose 134 H (74-106) mg/dL POC Glucometer (74 to 106) mg/dL Calcium 8.4 (8.4-10.2) mg/dL Total Bilirubin 0.50 (0.2-1.3) mg/dL AST 37 (17-59) U/L ALT 30 (0-50) U/L Alkaline Phosphatase 71 (38-126) U/L Serum Total Protein 7.2 (6.3-8.2) g/dL Albumin 3.7 (3.5-5.0) g/dL Random Gentamicin 5.64 ug/mL 10/05/23 Range/Units 08:07 WBC (4.0-10.5) x10^3/uL RBC (4.1-5.6) x10^6/uL Hgb (12.5-18.0) g/dL Hct (42-50) % MCV (78-100) fL MCH (26-32) pg MCHC (32-36) g/dL RDW (11.5-14.0) % Plt Count (150-450) x10^3/uL MPV (7.5-11.0) fL Sodium (135-145) mmol/L Potassium (3.5-5.1) mmol/L Chloride (98-107) mmol/L Carbon Dioxide (22-30) mmol/L Anion Gap (5-15) MEQ/L BUN (9-20) mg/dL Creatinine (0.66-1.25) mg/dL Estimated GFR ML/MIN Glucose (74-106) mg/dL POC Glucometer 129 H (74 to 106) mg/dL Calcium (8.4-10.2) mg/dL Total Bilirubin (0.2-1.3) mg/dL AST (17-59) U/L ALT (0-50) U/L Alkaline Phosphatase (38-126) U/L Serum Total Protein (6.3-8.2) g/dL Albumin (3.5-5.0) g/dL Random Gentamicin ug/mL Micro Results-Entire Visit: Microbiology 10/02/23 08:41 Gram Stain - Final Foot - Right Gram Stain Result 1 - Final Gram Stain Result 2 - Final AFB Specimen Processing - Final Acid Fast Bacilli Smear - Final Accuchecks Date 10/05/23 Date 10/04/23 Time 08:10 - Procedures and Test Procedures and Tests throughout Hospitalization: Therapy Orders & Screens 10/02/23 11:22 OT Screen per Nursing Assess ONCE Comment: Protocol Order Physician Instructions: Greater than 3 points order OT Admission Screening Reason For Exam: Triggered on Admission Diagnosis: right foot wound Open Wound/Cellutlitis/Pressure Ulcers: No Acute Fx/ORIF/Change in wt bearing status: No Severe MUSCULOSKELETAL pain: No ADL Dysfunction: Yes Acute CVA w/Hemiparesis/Hemiplegia: No Decreased Functional Mobility/Strength: Yes Sprain/Strain: No Acute Post-op Mobility Dysfunction: Yes Total Points: 7 PT Screen per Nursing Assess ONCE Comment: Protocol Order Physician Instructions: Greater than 3 points order PT Admission Screenin Reason For Exam: Triggered on Admission Diagnosis: right foot wound Open Wound/Cellutlitis/Pressure Ulcers: No Acute Fx/ORIF/Change in wt bearing status: No Severe MUSCULOSKELETAL pain: No ADL Dysfunction: Yes Acute CVA w/Hemiparesis/Hemiplegia: No Decreased Functional Mobility/Strength: Yes Sprain/Strain: No Acute Post-op Mobility Dysfunction: Yes Total Points: 7 10/02/23 14:36 PT Eval & Treat (MD Order) ONCE Reason for Eval:: post foot surgery eval for home needs. Diagnosis: right foot wound Discharge Exam General Appearance: no apparent distress, alert Neurologic Exam: alert, oriented x 3, cooperative, normal mood/affect, nml cerebellar function, sensation nml, No motor deficits Eye Exam: PERRL, EOMI, eyes nml inspection Ears, Nose, Throat Exam: normal ENT inspection, pharynx normal, moist mucous membranes Neck Exam: normal inspection, non-tender, supple, full range of motion Respiratory Exam: normal breath sounds, lungs clear, No respiratory distress Cardiovascular Exam: regular rate/rhythm, normal heart sounds Gastrointestinal/Abdomen Exam: soft, No tenderness, No mass Male Genitalia Exam: deferred Rectal Exam: deferred Back Exam: normal inspection, normal range of motion, No CVA tenderness, No vertebral tenderness Extremity Exam: normal inspection, normal range of motion Skin Exam: normal color, warm, dry, other (right foot wound, wrapped by podiatry) Wound Assessment: Skin/Wound Assessment Wound/Incision Assessment Start: 10/02/23 11:22 Text: Status: Active Freq: Q6H Protocol: Document 10/05/23 08:00 RF (Rec: 10/05/23 08:48 RF [id number]) Wound/Incision Assessment Right Foot Wound Assessment Shift Assessment Wound Type Incision Wound Stage Non Pressure Wound Dressing Status Dry & Intact Comment Dressing to remain on per Dr. Vee, C/D/I Wound Photo Photo Taken No Final Diagnosis/Problem List - Final Discharge Diagnosis/Problem (1) Wound, open, foot Current Visit: No Status: Acute Code(s): S91.309A - UNSPECIFIED OPEN WOUND, UNSPECIFIED FOOT, INITIAL ENCOUNTER (2) Type II diabetes mellitus Current Visit: Yes Status: Chronic (3) Hyperlipidemia Current Visit: Yes Status: Chronic Code(s): E78.5 - HYPERLIPIDEMIA, UNSPECIFIED (4) HTN (hypertension) Current Visit: Yes Status: Chronic Code(s): I10 - ESSENTIAL (PRIMARY) HYPERTENSION (5) Obesity, morbid, BMI 40.0-49.9 Current Visit: Yes Status: Acute Code(s): E66.01 - MORBID (SEVERE) OBESITY DUE TO EXCESS CALORIES (6) History of MDR Pseudomonas aeruginosa infection Current Visit: Yes Status: Acute Assessment & Plan: (1) Wound, open, foot Current Visit: No Status: Acute Assessment & Plan: - Podiatry consult, awaiting recs - Post op I& D right foot wound with bone graft - was on Cefepime OP - IV Zosyn - 2:2 type II DM - Narcotic pain control - Zofran PRN N/V 10/03 - Podiatry changed antibiotics back to cefepime and will continue OP. - Pt has PICC line in place - CM to set up Op antibiotics - PT eval - If ok with podiatry november d/c today 10/04 - Podiatry started gentamicin and stopped cefepime on 10/03 - Pt did well overnight w/o side effects from new medication - IV OP antibiotics set up by CM. - Pt to also have OP dressing changes per podiatry orders. - MRI from 09/21/23 of right foot w/o contrast reviewed: 1 Penetrating skin ulcerations along both th emedial and plantar surface of the great toe at level MTP joint. There is moderately expansile abscess or phlegmonous soft tissue within the plantar soft tissues measuring a total approximately [id number]. 2. Edema throughout the lateral sesamoid of the first MTP joint favored to reflect focal osteomyelitis. 3.Mild Degenerative changes of the first MTP joint as well, with minimal subarticular edema of the metatarsal head and phalangeal base. However, additional significant osteomyelitis is felt to be fairly unlikely. 4. Moderate degenerative arthritic change throughout the midfoot. - Pt has a knee scooter, walker, and crutch for non-picc arm if needed. Code(s): S91.309A - UNSPECIFIED OPEN WOUND, UNSPECIFIED FOOT, INITIAL ENCOUNTER (2) Type II diabetes mellitus Current Visit: Yes Status: Chronic Assessment & Plan: - Uncontrolled - A1C 09/12/23 7.78 - accuchecks ac/hs - low dose s/s Humalog - 1800 morelia consistent carb diet - hold metformin 10/03 - continue home meds Op (3) Hyperlipidemia Current Visit: Yes Status: Chronic Assessment & Plan: - continue statin Code(s): E78.5 - HYPERLIPIDEMIA, UNSPECIFIED (4) HTN (hypertension) Current Visit: Yes Status: Chronic Assessment & Plan: - stable - continue home meds Code(s): I10 - ESSENTIAL (PRIMARY) HYPERTENSION (5) Obesity, morbid, BMI 40.0-49.9 Current Visit: Yes Status: Acute Assessment & Plan: - advised ADA diet and exercise control Code(s): E66.01 - MORBID (SEVERE) OBESITY DUE TO EXCESS CALORIES (6) History of MDR Pseudomonas aeruginosa infection Current Visit: Yes Status: Acute Assessment & Plan: - seen after reviewing old labs - No need for isolation unless doing dressing changes per infection control. - current cultures pending- f/u with podiatry OP Code(s): Z86.19 - PERSONAL HISTORY OF OTHER INFECTIOUS AND PARASITIC DISEASES Code(s): Z86.19 - PERSONAL HISTORY OF OTHER INFECTIOUS AND PARASITIC DISEASES - Discharge Discharge Date: 10/05/23 Disposition: Home, Self-Care Condition: Stable Prescriptions: New Hydrocodone/Acetaminophen [Hydrocodone-Acetamin 7.5-325] 1 each PO Q6HPRN PRN #28 tablet MDD 4 PRN Reason: Pain Aspirin EC 325 mg [Ecotrin 325 MG] 325 mg PO DAILY #30 tab Gentamicin Inj [Garamycin Inj] See Rx Instructions .ROUTE .COMPLEX 21 Days Continue Potassium Chloride 20 Meq [Klor-Con 20 MEQ] 20 meq PO DAILY Furosemide [Lasix] 40 mg PO DAILY Carvedilol [Coreg ] 6.25 mg PO BID lisinopriL [Lisinopril] 20 mg PO DAILY Simvastatin 20 mg PO HS Allopurinol 300 mg [Zyloprim 300 mg] 300 mg PO DAILY Metformin HCl 500 mg [Glucophage 500 MG] 500 mg PO BIDWM Cholecalciferol (Vitamin D3) [Vitamin D] 2,000 unit PO DAILY Discontinued Aspirin EC 325 mg [Ecotrin 325 MG] 81 mg PO DAILY Cefepime HCl 2 gm [Maxipime 2 GM] 2 gm IJ BID Additional Instructions: REMAIN NONWEIGHTBEARING TO OPERATIVE FOOT DO NOT USE CRUTCH UNDER ARM WITH PICC LINE IN PLACE YOUR FIRST INFUSION IS TOMORROW 10/06/23@9 AM Follow up with: JESS BOSTON DPM [ACTIVE STAFF] - 10/08/23 10:30 am BRII JUAN MD [Primary Care Provider] - 10/11/23 11:15 am
[2023-10-05 11:51] VITALS: TEMP 97.9
== END 2023-10-05 12:51 | disposition home or self-care (01) ==
LOC: MED SURG 06:11 → EDSTATUS 14:19
PROVIDERS: ADMIT Internal Medicine Nephrology; ATTEND Internal Medicine Nephrology
DX: S91.309A Unspecified open wound, unspecified foot, initial encounter (principal); E11.621 Type 2 diabetes mellitus with foot ulcer; E11.42 Type 2 diabetes mellitus with diabetic polyneuropathy; E78.5 Hyperlipidemia, unspecified; I10 Essential (primary) hypertension; E66.01 Morbid (severe) obesity due to excess calories; L97.512 Non-pressure chronic ulcer of other part of right foot with fat layer exposed; L02.611 Cutaneous abscess of right foot; Z86.19 Personal history of other infectious and parasitic diseases; M86.9 Osteomyelitis, unspecified; N28.9 Disorder of kidney and ureter, unspecified; E66.9 Obesity, unspecified; Z79.899 Other long term (current) drug therapy; Z20.828 Contact with and (suspected) exposure to other viral communicable diseases
CPT/HCPCS: 11042; 11045; 28005; 29580; 36415; 73630; 76000; 80048; 80053; 80170; 82947; 85027; 87070; 87075; 87116; 87205; 87206; 93268; 97161; 99024; G0378; Q3014; A6260; J0692; J1580; J1642; J2001; J2250; J2543; J2704; A9270-GY

== ENCOUNTER 2023-10-09 05:50 | Day surgery (SDC) | payer BC ==
[~2023-10-09 05:50] MED LIST: DEXMEDETOMIDINE 80 MCG/20ML-NS IV ONE; DIPRIVAN 200 MG/20 ML IV ONE; Lactated Ringers 1,000 ML IV ONE; Marcaine Mpf 0.5% Vial 30 Ml ONE; Pepcid 20 MG VIAL IV ONE; Reglan 10 MG/2 ML ONE; Versed 2 MG/2 ML Injection ONE; Xylocaine 1% Vial 30 ML PF IJ ONE; Xylocaine-Mpf 2% 5 Ml Vial ONE
[2023-10-09 06:27] LABS: Hematocrit 44.1 % (42-50); Hemoglobin 14.1 g/dL (12.5-18.0); Mean Corpuscular Hemoglobin 28.1 pg (26-32); Mean Platelet Volume 9.7 fL (7.5-11.0); Platelet Count 272 x10^3/uL (150-450); Red Blood Count 5.01 x10^6/uL (4.1-5.6); Red Cell Distribution Width 15.4 % (11.5-14.0); White Blood Count 7.7 x10^3/uL (4.0-10.5)
[2023-10-09] MEDS: Lactated Ringers 1,000 ML IV SCH (06:29)
[2023-10-09 06:48] LABS: ANION GAP 14.1 MEQ/L (5-15); BILIRUBIN,TOTAL 1.2 mg/dL (0.2-1.3); Calcium 9.1 mg/dL (8.4-10.2); Creatinine 1 1.21 mg/dL (0.66-1.25); EST GLOMERULAR FILTRATION RATE 68.6 ML/MIN; Potassium 4.4 mmol/L (3.5-5.1); Total Protein 8.2 g/dL (6.3-8.2)
[2023-10-09] MEDS ORDERED: Xylocaine 1% Vial 30 ML PF IJ ONE (07:10)
[2023-10-09] MEDS ORDERED: Marcaine Mpf 0.5% Vial 30 Ml ONE (07:10)
[2023-10-09] MEDS ORDERED: Xylocaine-Mpf 2% 5 Ml Vial ONE (08:15)
[2023-10-09] MEDS ORDERED: Versed 2 MG/2 ML Injection ONE (08:15)
[2023-10-09] MEDS ORDERED: DIPRIVAN 200 MG/20 ML IV ONE (08:15)
[2023-10-09] MEDS ORDERED: SUBLIMAZE 100 MCG/2 ML ONE (08:15)
[2023-10-09 09:21] VITALS: TEMP 97
[2023-10-09 09:26] VITALS: RESP 20
[2023-10-09 09:35] VITALS: BP 114/73; PULSE 70; O2SAT 97
--- NOTE | 2023-10-10 12:00 | OP ---
SURGERY DATE/TIME: 10/09/2023 0812 PREOPERATIVE DIAGNOSES: 1) Osteomyelitis right foot. 2) Pain right foot. 3) Diabetic foot ulcer right foot. 4) Surgical wound to the right foot. 5) Peripheral neuropathy right foot. POSTOPERATIVE DIAGNOSES: 1) Osteomyelitis right foot. 2) Pain right foot. 3) Diabetic foot ulcer right foot. 4) Surgical wound to the right foot. 5) Peripheral neuropathy right foot. PROCEDURE: Incision and drainage with bone debridement to the right foot and delayed primary closure to the plantar aspect of the foot well as dorsal aspect of the foot. SURGEON: Mariusz Yen DPM. INPUT OUTPUT CLERK: None. ANESTHESIA: Monitored anesthesia care. HEMOSTASIS: Pressure dressing. ESTIMATED BLOOD LOSS: Approximately 10 cc. MATERIALS: Suturegard, 2-0 Nylon, 3-0 Nylon, 2-0 Vicryl. INJECTABLES: 30 cc of 1:1 mixture of 1% lidocaine plain and 0.5% bupivacaine plain injected in an ankle block-type fashion. INDICATION FOR SURGERY: Carlos is a very pleasant 58-year-old male well known to my service for diabetic foot ulcer that was not responding to conservative care. The patient was placed on IV antibiotics and a sesamoidectomy was performed in conjunction with MRI that demonstrated he did have some osteomyelitic concerns of the fibular sesamoid. Bone biopsies were taken of the fibular sesamoid, proximal phalanx, right first and first metatarsal which has returned as negative so patient is bone infection free. It does appear that the soft tissue infection has resolved at this time. The patient is on IV antibiotics and is a good candidate for closure of the wound. The patient was discussed the options for going forward and he prefers to go down this road rather than allowing the wounds to heal by secondary intention. The patient understands all risks, complications and benefits of surgical intervention at this time including but not limited to infection, hematoma, seroma, possibility of delayed wound healing, nonwound healing and possible failure of surgical intervention leading to possible amputation, loss of limb or loss of life. The patient understands all of this and wishes to proceed. Plenty of time was allowed for the patient to ask questions which were answered to his apparent satisfaction. It is at this time we decided to proceed. DESCRIPTION OF PROCEDURE AND FINDINGS: The patient is brought into the OR and placed on the OR table in the supine position. At this time, monitored anesthesia care was administered until the patient was adequately sedated. Following this, the right lower extremity was prepped and draped in the typical sterile fashion and lowered onto the surgical field. Prior to beginning, a block consisting of 30 cc of a 1:1 mixture of 1% lidocaine plain and 0.5% bupivacaine plain was injected into the right ankle in an ankle block-type fashion. Following this, the procedure began focusing on the plantar aspect of the wound where there was the most significant amount of tension. From this standpoint, a 15 blade, curette and rongeur were utilized to perform a bone debridement as well as freshen the edges until there was a healthy bleeding edge on both sides of the wound. This was flushed with copious amounts of sterile saline and then utilizing Suturegard 2-0 Vicryl and 3-0 Nylon in order to coapt the surgical wound with simple buried interrupted for the subcu and with Vicryl and alternating 2-0 and 3-0 Nylon with horizontal mattress and simple interrupted sutures. Tension was relieved utilizing the Suturegard. Attention was then directed to the dorsal aspect of the foot where once again a linear incision was carried down to the level of a healthy bleeding surface on each side of the wound and the wound debridement took place utilizing primarily the rongeur. Following this, copious amounts of sterile saline were utilized to flush the surgical site and a Suturegard as well as 2-0 Vicryl and 3-0 Nylon in a simple buried interrupted-type fashion and a 3-0 Nylon utilized for horizontal mattress-type fashion to coapt the skin edges. At this time, a dressing consisting of Betadine, Adaptic, 4x4, Kerlix and a relative compressive JEFFREY was applied to the patient's right lower extremity. The patient was then reversed from anesthesia and returned to the postoperative anesthesia care unit with vital signs stable and vascular status intact. The patient handled the anesthesia as well as procedure without significant complication. Postoperative orders as indicated in the patient's discharge chart.
== END 2023-10-09 09:48 | disposition home or self-care (01) ==
LOC: SDC 05:50
PROVIDERS: ATTEND Podiatrist Foot & Ankle Surgery
DX: M86.9 Osteomyelitis, unspecified (principal); M79.671 Pain in right foot; E11.621 Type 2 diabetes mellitus with foot ulcer; S91.301A Unspecified open wound, right foot, initial encounter; E11.42 Type 2 diabetes mellitus with diabetic polyneuropathy
CPT/HCPCS: 13160; 28005; 36415; 80053; 80170; 85027; 96365; J1642; J2001; J2250; J2704; J3010

== ENCOUNTER 2024-05-27 06:02 | Day surgery (SDC) | payer BC ==
[2024-05-27] MEDS ORDERED: KEFZOL 1 GM** 3 G in Sodium Chloride 0.9% 50 ML 50 ML IV ONE (06:14)
[2024-05-27 06:28] VITALS: RESP 18
[2024-05-27 06:29] LABS: Hematocrit 46.4 % (40.1-51.0); Hemoglobin 15.1 g/dL (13.7-17.5); Mean Cell Volume 92.1 fL (79.0-92.2); Mean Corpuscular Hgb Concent. 32.5 g/dL (32.3-36.5); Mean Platelet Volume 10.6 fL (9.4-12.4); Platelet Count 185 x10^3/uL (163-337); Red Blood Count 5.04 x10^6/uL (4.63-6.08); Red Cell Distribution Width 13.8 % (11.6-14.4); White Blood Count 5.9 x10^3/uL (4.23-9.07)
[2024-05-27] MEDS: Lactated Ringers 1,000 ML IV SCH (06:35)
[2024-05-27] MEDS ORDERED: Xylocaine 1% Vial 30 ML PF IJ ONE (06:42)
[2024-05-27] MEDS ORDERED: Marcaine Mpf 0.5% Vial 30 Ml ONE (06:42)
[2024-05-27 06:47] LABS: ANION GAP 13.5 MEQ/L (5-15); BILIRUBIN,TOTAL 0.7 mg/dL (0.2-1.3); Creatinine 1 0.81 mg/dL (0.66-1.25); EST GLOMERULAR FILTRATION RATE 100.9 ML/MIN; Potassium 4.5 mmol/L (3.5-5.1); Total Protein 7.3 g/dL (6.3-8.2)
[2024-05-27] MEDS ORDERED: DIPRIVAN 200 MG/20 ML IV ONE ×2 (07:04→07:44)
[2024-05-27] MEDS ORDERED: Xylocaine-Mpf 2% 5 Ml Vial ONE (07:04)
[2024-05-27] MEDS ORDERED: Versed 2 MG/2 ML Injection ONE (07:04)
[2024-05-27] MEDS ORDERED: SUBLIMAZE 100 MCG/2 ML ONE (07:04)
[2024-05-27 08:23] LABS: Eosinophil 5 % (0.8-7.0); Lymphocytes 25 % (21.8-53.1); Monocyte 14 % (5.3-12.2); Neutrophils 56 % (34.0-67.9); Total Cells Counted 100
[2024-05-27 08:24] LABS: Platelet Estimate NORMAL (NORMAL)
--- NOTE | 2024-05-27 09:02 | XRAY ---
Indication: Right foot peroneal tendon transfer versus resection. Intraoperative fluoroscopy provided for 3 seconds. Single digital spot image submitted for interpretation demonstrates metallic localizer tip medial to head 1st metatarsal. Correlate with intraoperative findings/report.
[2024-05-27 09:10] VITALS: BP 149/47; PULSE 52; TEMP 96.5; O2SAT 99
--- NOTE | 2024-05-27 10:54 | XRAY ---
3 seconds of fluoroscopy was used in surgery for a right foot peroneal tendon transfer versus resection.
--- NOTE | 2024-05-28 14:41 | OP ---
SURGERY DATE/TIME: 05/27/2024 [id number] PREOPERATIVE DIAGNOSES: 1) Diabetic foot ulcer sub-first metatarsal head, right foot. 2) Diabetic peripheral neuropathy. 3) Uncontrolled diabetes mellitus. 4) Peroneal tendonitis/peroneal overdrive. POSTOPERATIVE DIAGNOSES: 1) Diabetic foot ulcer sub-first metatarsal head, right foot. 2) Diabetic peripheral neuropathy. 3) Uncontrolled diabetes mellitus. 4) Peroneal tendonitis/peroneal overdrive. PROCEDURE: 1) Peroneus longus to peroneus brevis tendon transfer, offloading transfer. 2) Soft tissue debridement less than 20 sq cm; wound ulcer measurement 2.1 x 1.1 post debridement. SURGEON: Mariusz Yen DPM SENIOR ACCOUNTING MANAGER: Chito Land NP ANESTHESIA: Monitored anesthesia care with a preoperatively local block. HEMOSTASIS: Esmarch applied to the right lower extremity at the mid calf level for 25 total tourniquet minutes. ESTIMATED BLOOD LOSS: Approximately 10 mL. INJECTABLES: 10 mL of a 1:1 mixture of 1% lidocaine plain and 0.5% bupivacaine plain in a sural and a superficial peroneal nerve block. INDICATIONS: The patient is very pleasant 58-year-old male very well known to my service for a previous bout of osteomyelitis to the first metatarsal head and the sesamoid. After aggressive bone debridement and delayed primary closure, the patient did heal, however, has had a recurrence of this ulceration suspect due to the first ray overload. The patient has had 3 recurrences, 2 with another provider and 1 with me, and I do believe that most of this is due to biomechanics at this time. The patient does have a clinical exam that is consistent with peroneus longus overdrive which is consistently causing the first ray to drive into the ground and causing the ulcer to open. We have explained all risks, benefits, and complications as a result of this procedure including, but not limited to, infection, hematoma, seroma, possibility of delayed wound healing, non-wound healing, and possible failure of surgical intervention. There have been no guarantees provided as to the outcome of surgical intervention at this time. Plenty of time was allowed for the patient to ask questions which were answered to his apparent satisfaction. It is at this time we decided proceed. DESCRIPTION OF PROCEDURE AND FINDINGS: The patient was brought into the operating room and placed on the operating room table in the supine position. At this time, monitored anesthesia care was administered until the patient was adequately sedated. Following this, the patient was prepped and draped in the typical sterile fashion and this was lowered only to the surgical field. At this time, attention was directed to the right lower extremity where wound debridement took place utilizing a combination of curettes and 15-blade as well as pickups to remove any devitalized tissue and expose healthy granulation, clearing any necrotic or nonviable tissue. This was cleansed with copious amounts of sterile saline. Following this, attention was directed to the lateral aspect of the ankle. Posterior to the fibula approximately 4 cm above where the superior peroneal retinaculum lay a linear incision was made. Careful dissection was carried down. It was at this time that the tissue was inspected and deemed to be very noncompliant given the patient's venous insufficiency as well as long-term diabetes. From that standpoint, the peroneus longus and peroneus brevis tendons were identified. The peroneus brevis just lay deep to the peroneus longus at this level and testing was utilized to identify which was which. Once certain of which tendon was which, the peroneus longus was resected. Approximately 1 cm of the tendon was resected from the site. The peroneus brevis and peroneus longus were tenodesed utilizing, after roughing up with a 15-blade, a 4-0 PDS in a running continuous suture. Following this, the peroneus longus was tracked down and then tenodesed under minimal tension to still give the peroneus longus some power. This once again was carried out after roughing the 2 tendon edges and then 4-0 PDS. Following this, copious amounts of sterile saline were utilized to flush the surgical site. 4-0 Monocryl was then utilized to coapt the subcutaneous edges in a simple buried interrupted-type fashion and then 3-0 nylon was utilizing in a horizontal mattress-type fashion to coapt the skin edges in an everted-type fashion. A dressing consisting of Betadine, Adaptic, 4 x 4, Kerlix, and Coban was applied to the patient's right lower extremity with the foot orthogonal relative to longitudinal axis of the leg. The patient was then reversed from anesthesia and returned to the postoperative anesthesia care unit with vital signs stable and vascular status intact. The patient handled the anesthesia as well as the procedure without significant complication. Postoperative orders are as indicated in the patient's discharge chart.
== END 2024-05-27 09:30 | disposition home or self-care (01) ==
LOC: SDC 06:02
PROVIDERS: ATTEND Podiatrist Foot & Ankle Surgery
DX: E11.621 Type 2 diabetes mellitus with foot ulcer (principal); E11.42 Type 2 diabetes mellitus with diabetic polyneuropathy; E11.65 Type 2 diabetes mellitus with hyperglycemia; M76.71 Peroneal tendinitis, right leg
CPT/HCPCS: 11042; 27691; 36415; 73630; 76000; 80053; 82947; 85025; 93005; J2250; J2704; J3010